=== PATIENT | female | born 1970 | race Caucasian/White ===

== ENCOUNTER 2020-03-31 16:53 | Outpatient (CLI) | payer BC, SELFPAY ==
--- NOTE | ~2020-03-31 | MM_ITS ---
EXAMINATION: MM screening carol BI w bri HISTORY: Screening mammogram TECHNIQUE: Craniocaudal and mediolateral oblique 3-D tomosynthesis images were obtained and synthetic 2-D images were generated. CAD analysis was submitted and interpreted. COMPARISON: 03/04/2017, 01/11/2016, 3534 2014 bilateral digital screening mammogram examinations BREAST PARENCHYMAL COMPOSITION: There are scattered areas of fibroglandular density. FINDINGS: There is no evidence of suspicious mass, calcification, or architectural distortion to sugg est malignancy in either breast. There has been no suspicious interval change. IMPRESSION: 1. No mammographic evidence of malignancy. 2. Recommend routine screening mammography in one year. BI-RADS Category 1: Negative Reviewed, dictated and finalized at location A. FICATION OPERATOR
== END 2020-03-31 16:54 | disposition home or self-care (01) ==
LOC: ANHIMG 16:59
PROVIDERS: PCP Nurse Practitioner Family; Visit Provider Physician Assistant
DX: Z12.31 Encounter for screening mammogram for malignant neoplasm of breast (principal)
CPT/HCPCS: 77063; 77067

== ENCOUNTER 2020-06-16 09:09 | Emergency (ER) | payer BC, SELFPAY ==
--- NOTE | ~2020-06-16 | XR_ITS ---
EXAMINATION: XR ankle RT min 3V DATE: 06/16/2020 09:39 INDICATION: Right ankle injury and pain. TECHNIQUE: 4 views of right ankle were obtained. COMPARISON: None. FINDINGS: Bone alignment is normal. No fracture. There is mild midfoot osteoarthritis. There are enth esophytes at the posterior and plantar aspects of calcaneal tuberosity. Ankle soft tissue swelling is noted. IMPRESSION: 1. No fracture. Reviewed, dictated and finalized at location A. IMPRESSION: 1. No fracture.
--- NOTE | 2020-06-16 09:15 | ED.GENADULT ---
HPI - General Adult General Chief complaint: Extremity Injury, Lower Stated complaint: INJURED R ANKLE Time Seen by Provider: 06/16/20 09:17 Source: patient and RN notes reviewed Mode of arrival: ambulatory Limitations: no limitations History of Present Illness HPI narrative: 49-year-old female presents with complains of tenderness and swelling to the right ankle for the past 10 hours. Lynn reports walking down back steps barefoot, slipped on wet grass, twisting foot causing injury to RT ankle. Aleve, elevation, padmini wrap, and ice without relief. No radiating pain. No numbness or tingling or loss of mobility. Denies inability to bear weight. Exacerbation factor consist of movement and applying pressure. No relieving factors. Denies discoloration. Denies altered sensation, back pain, neck pain, and suspected foreign body. Denies fever. The patient reports she have not been diagnosed with COVID-19. The patient reports she is not waiting for the results of a COVID-19 lab test. The patient reports she do not have chills, weakness, or fatigue. The patient reports she do not have a new or worsening cough or shortness of breath. Denies chest pain. The patient reports she do not have any rhinorrhea, congestion, sore throat, loss of taste or smell, nausea, vomiting, abdominal pain, and diarrhea. Tolerating po intake well. Denies recent traveling. Denies concerns for COVID-19 or exposures been home with limited outdoor exposure except for essential household needs, work, and return home. At this time, patient is not suspected of having COVID-19. Some parts of this dictation were generated by voice recognition software and may contain typographical and/or grammatical inaccuracies. Related Data Home Medications Medication Instructions Recorded Confirmed No Home Medications 06/16/20 06/16/20 Allergies Allergy/AdvReac Type Severity Reaction Status Date / Time No Known Allergies Allergy Verified 06/16/20 09:19 Review of Systems Review of Systems: Narrative: CONSTITUTIONAL: Denies fever, chills, sweats. EYES: Denies visual changes, redness, discharge. ENT: Denies rhinorrhea, congestion, sore throat, otalgia. CARDIOVASCULAR: Denies chest pain, palpitations, edema. RESPIRATORY: Denies dyspnea, wheezing, cough GASTROINTESTINAL: Denies abdominal pain, nausea, vomiting, diarrhea. SKIN: Denies rash or itching. MUSCULOSKELETAL: Denies acute back pain or myalgia. Complains of RT ankle swelling and tenderness. NEUROLOGIC: Denies numbness or focal weakness. PSYCHIATRIC: Denies anxiety or depression. All other systems reviewed & are unremarkable except as noted in HPI and below. PENDING SALE TO [facility] Past Medical History Medical History (Updated 06/17/20 @ 00:01 by Sandra Teixeira) Post-menopausal Surgical History Surgical History (Updated 06/16/20 @ 09:58 by AIDEE Andrade) No significant past surgical history Family History Family History (Updated 06/16/20 @ 09:59 by AIDEE Andrade) Father , Related to emphysema Smoker Mother , At age 80 Lymphoma Social History Social History (Updated 06/16/20 @ 09:59 by AIDEE Andrade) Smoking status: Never smoker Tobacco type: cigarettes Second hand tobacco smoke exposure: No Alcohol intake: current Substance use: never Living arrangements: with family Occupation/Education: occupation Gender identity (if verbalized by the patient): Female Sexual Orientation (if Verbalized by the Patient): Straight or Heterosexual Comments At time of signature, agree with nurse past medical, surgical, social, and family history. There is no relevant family history pertinent to the presenting complaint. Exam Narrative: Exam Narrative: GENERAL: This is a well-nourished, well-developed patient, in no apparent distress. Talks in full sentences without deficits and ambulates with RT antalgic gait without dyspnea. HEAD: Normocephalic
[2020-06-16 09:21] VITALS: BP 147/94; PULSE 70; RESP 16; TEMP 36.6; O2SAT 100
== END 2020-06-16 10:05 | disposition home or self-care (01) ==
PROVIDERS: Emergency Provider Nurse Practitioner Family; PCP Nurse Practitioner Family
DX: S93.401A Sprain of unspecified ligament of right ankle, initial encounter (principal); X50.9XXA Other and unspecified overexertion or strenuous movements or postures, initial encounter
CPT/HCPCS: 73610; 99213; G0463

== ENCOUNTER 2021-04-18 11:03 | Outpatient (CLI) | payer BC, SELFPAY ==
--- NOTE | 2021-04-18 | ECG_ITS ---
Measurements Intervals [place] Rate: 61 P: 36 VA: 147 QRS: -16 QRSD: 89 T: 14 QT: 405 QTc: 411 Interpretive Statements SINUS RHYTHM NO PREVIOUS ECG AVAILABLE FOR COMPARISON Electronically Signed On 04-18-2021 12:29:03 GLASSWARE DEFECT REPAIRER by Miles Willams M.D.
== END 2021-04-18 11:04 | disposition home or self-care (01) ==
LOC: ANHCARD 11:06
PROVIDERS: PCP Nurse Practitioner Family; Visit Provider Obstetrics & Gynecology
DX: E66.9 Obesity, unspecified (principal)
CPT/HCPCS: 93005

== ENCOUNTER 2021-04-27 17:12 | Outpatient (CLI) | payer BC, SELFPAY ==
--- NOTE | ~2021-04-27 | MM_ITS ---
EXAMINATION: MM screening carol BI w bri HISTORY: Screening TECHNIQUE: Craniocaudal and mediolateral oblique 3-D tomosynthesis images were obtained and synthetic 2-D images were generated. CAD analysis was submitted and interpreted. COMPARISON: Comparison to multiple prior studies sequentially, with oldest reviewed study dated 04/09. BREAST PARENCHYMAL COMPOSITION: There are scattered areas of fibroglandular density. FINDINGS: There is no evidence of suspicious mass, calcification, or architectural distortion to sugg est malignancy in either breast. There has been no suspicious interval change. IMPRESSION: 1. No mammographic evidence of malignancy. 2. Recommend routine screening mammography in one year. BI-RADS Category 1: Negative Reviewed, dictated and finalized at location A. ERIZER
== END 2021-04-27 17:13 | disposition home or self-care (01) ==
PROVIDERS: PCP Nurse Practitioner Family; Visit Provider Nurse Practitioner Family
DX: Z12.31 Encounter for screening mammogram for malignant neoplasm of breast (principal)
CPT/HCPCS: 77063; 77067

== ENCOUNTER 2021-06-28 08:46 | Emergency (ER) | payer BC, SELFPAY ==
--- NOTE | ~2021-06-28 | CT_ITS ---
EXAMINATION: CT abdomen pelvis w con DATE: 06/28/2021 09:26 INDICATION: Right lower quadrant abdominal pain starting 2 days ago TECHNIQUE: Computed tomography (CT) of the abdomen and pelvis was performed with 100 CC Omnipaque 300 intravenous contrast. Automated exposure control and iterative reconstruction technique were employe d. Exam dose: 510.17 mGy-cm total exam DLP. COMPARISON: None. FINDINGS: The lung bases are clear of infiltrate or consolidation. Normal heart size. No pericardial or pleural effusion. The liver, gallbladder, bile ducts, spleen, pancreas, pancreatic duct, and adrenal glands and kidneys are unremarkable. Normal caliber of the abdominal aorta. No intraperitoneal or retroperitoneal or pelvic mass lesion or adenopathy or ascites. The uterus, adnexa and urinary bladder are unremarkable, other than an approximately 9 mm right ovari an cyst. Normal appendix. There is very prominent pericolic fat stranding in the region of the proximal sigmoid colon. There ar e scattered colonic diverticula. Findings are suggestive of sigmoid diverticulitis. No abscess cavity or free intraperitoneal air is noted. There is a small amount of free fluid in the cul-de-sac. Included skeletal structures are unremarkable; no suspicious osteolytic or osteoblastic lesions. IMPRESSION: Sigmoid diverticulitis Diverticulosis in the sigmoid colon 9 mm right ovarian cyst Normal appendix Reviewed, dictated and finalized at Location A. Reviewed, dictated and finalized at location B.
[2021-06-28 08:49] VITALS: BP 143/96; PULSE 96; RESP 16; TEMP 36.9; O2SAT 98
--- NOTE | 2021-06-28 09:01 | ED.ABDPAIN ---
HPI - Abdominal Pain General Chief Complaint: Abdominal Pain Stated Complaint: abd pain Time Seen by Provider: 06/28/21 08:49 Source: patient Mode of arrival: ambulatory Limitations: no limitations History of Present Illness HPI narrative: 50 y/o female presenting to the ER today for complaints of periumbilical/RLQ abdominal pain that started on Saturday. She says that the pain has been pretty intense and constant since Saturday. She had chills on Saturday evening but did not check temp. Last BM was Saturday and was normal. She has had mild nausea, no vomiting. No chest pain. No shortness of breath. She still has her gallbladder and appendix. She is normally very healthy. She has PMH of hypothyroid and hypertension. She has also been taking topamax and phentermine for weight loss but has not had this medication since the weekend. Related Data Home Medications Medication Instructions Recorded Confirmed levothyroxine 06/28/21 lisinopril 06/28/21 phentermine mg 06/28/21 topiramate 06/28/21 06/28/21 Allergies Allergy/AdvReac Type Severity Reaction Status Date / Time No Known Allergies Allergy Verified 06/28/21 08:52 Review of Systems Constitutional: Constitutional: Reports chills, Denies fatigue, Denies fever(s) and Denies weakness Eyes: Eyes: Reports no additional eye complaints ENT: Denies dysphagia, Denies dizziness, Denies nasal congestion and Denies sore throat Cardiovascular: Cardiovascular: Denies chest pain, Denies rapid heart rate and Denies radiating jaw, neck or arm pain Respiratory: Respiratory: Denies chest congestion, Denies cough, Denies dyspnea and Denies wheezing Gastrointestinal: Gastrointestinal: Reports abdominal pain, Denies constipation, Denies diarrhea, Reports nausea and Denies vomiting Genitourinary: Genitourinary: Denies hematuria, Denies nocturia, Denies dysuria and Denies flank pain Musculoskeletal: Musculoskeletal: Denies back pain and Denies myalgias Integumentary/Breasts: Skin/Breast: Denies rash Neurologic: Denies vertigo, Denies dizziness and Denies syncope Psychiatric: Psychiatric: Denies anxiety and Denies depression Endocrine: Endocrine: Denies fatigue Hematologic/Lymphatic: Hematologic/Lymphatic: Reports no additional hematologic/lymphatic complaints Allergic/Immunologic: Allergic/Immunologic: Reports no additional allergic/immunologic complaints [facility] Past Medical History Medical History Hypertension Hypothyroid Obesity Post-menopausal Surgical History Surgical History No significant past surgical history Family History Family History Father , Related to emphysema Smoker Mother , At age 80 Lymphoma Social History Social History Smoking status: Never smoker Tobacco type: cigarettes Second hand tobacco smoke exposure: No Alcohol intake: current Substance use: never Gender identity (if verbalized by the patient): Female Sexual Orientation (if Verbalized by the Patient): Straight or Heterosexual Exam Const: General: healthy appearing, no acute distress and alert Orientation/consciousness: patient oriented x3 HENMT: Head: normal to inspection Eyes: Conjunctivae: conjunctivae normal Neck: Neck: normal visual inspection Chest: Chest palpation & inspection: normal inspection of the chest Resp: Effort & Inspection: normal respiratory effort Auscultation: clear to auscultation bilaterally Cardio: Rate: regular rate Rhythm: regular rhythm GI: GI Palp: Yes Soft to palpation and Yes Tenderness to palpation present (GI) (periumbilical and RLQ) Auscultation: normal bowel sounds : General: Yes no CVA tenderness Skin: General skin exam: normal color Rashes: no rashes Neuro: Genera
[2021-06-28 09:08] LABS: Basophils Absolute Auto 0.1 K/mm3 (0.0-0.1); Basophils Percent Auto 0.5 % (0.2-1.2); Eosinophils Absolute Auto 0.1 K/mm3 (0-0.3); Eosinophils Percent Auto 0.7 % (0-4.4); Hematocrit 41.1 % (37.0-47.0); Hemoglobin 13.7 g/dL (12.0-15.0); Immature Granulocyte Absolute 0.05 K/mm3 (0.00-0.031); Immature Granulocyte Percent A 0.3 % (0-0.5); Lymphocytes Percent Auto 12.9 % (18.3-44.2); Mean Corpuscular HGB Conc 33.3 g/dl (32-36); Mean Corpuscular Hemoglobin 29.5 pg (26-34); Mean Corpuscular Volume 88.4 fl (80-100); Mean Platelet Volume 10.8 fl (7.4-10.4); Monocytes Absolute Auto 1.4 K/mm3 (0.1-0.6); Monocytes Percent Auto 8.7 % (2.6-8.5); Neutrophils Absolute Auto 11.9 K/mm3 (1.3-6.7); Neutrophils Percent Auto 76.9 % (45.5-73.1); Platelet Count Result 269 k/mm3 (150-375); Red Blood Count 4.65 M/mm3 (4.2-5.4); Red Cell Distribution Width 13.1 % (11.5-14.5); White Blood Count 15.5 K/mm3 (4.5-10.0)
[2021-06-28 09:16] LABS: Estimated CRCL calculation 70 ml/min; Estimated Glomerular Filt Rate > 60
[2021-06-28 09:23] LABS: Lactic Acid Reflex 0.7 mmol/L (0.7-2.0)
[2021-06-28 09:28] LABS: Alanine Aminotransferase 15 U/L (6-35); Albumin Level 4.8 g/dL (3.5-5.1); Alkaline Phosphatase 95 U/L (38-126); Anion Gap 11 mmol/L (8-16); Aspartate Amino Transferase 19 U/L (14-36); Blood Urea Nitrogen 9 mg/dL (7-17); Calcium 9.1 mg/dL (8.4-10.2); Carbon Dioxide 23 mmol/L (22-30); Chloride 104 mmol/L (98-107); Estimated CRCL calculation 63 ml/min; Estimated Glomerular Filt Rate > 60; Glucose 108 mg/dL (65-110); Lipase 22 U/L (23-300); Potassium 3.7 mmol/L (3.4-5.0); Sodium 138 mmol/L (137-145)
[2021-06-28 09:58] LABS: Appearance Urine Clear (Clear); Bilirubin Urine 2+ (Negative); Glucose Urine UA Negative (Negative); Ketones Urine 2+ mg/dL (Negative); Leukocyte Esterase Ur Negative LEU/UL (Negative); Nitrate Urine Negative (Negative); Protein Urine 1+ mg/dL (Negative)
[2021-06-28 10:00] LABS: Color Urine Dark Yellow (Yellow)
[2021-06-28 10:01] LABS: Add Urine Microscopic? YES; Blood Urine Trace-Intact (Negative)
[2021-06-28 10:02] LABS: Mucus Urine Heavy /lpf; Squamous Epithelial Cell Urine Rare /hpf (Few)
[2021-06-28] MEDS: SODIUM CHLORIDE 0.9% IV 1,000 ML 999 ML IV CONT (10:02)
[2021-06-28 10:55] VITALS: BP 130/88; PULSE 86; RESP 14; O2SAT 99
== END 2021-06-28 11:23 | disposition home or self-care (01) ==
PROVIDERS: Emergency Medicine; Emergency Provider Nurse Practitioner Family; PCP Nurse Practitioner Family
DX: K57.32 Diverticulitis of large intestine without perforation or abscess without bleeding (principal); I10 Essential (primary) hypertension; E03.9 Hypothyroidism, unspecified; E66.9 Obesity, unspecified; Z68.31 Body mass index [BMI] 31.0-31.9, adult; K57.90 Diverticulosis of intestine, part unspecified, without perforation or abscess without bleeding; N83.201 Unspecified ovarian cyst, right side
CPT/HCPCS: 36415; 74177; 80053; 81001; 83605; 83690; 85025; 96360; 96361; 99284; J7030; Q9967

== ENCOUNTER 2022-01-29 08:00 | Outpatient (NON) | payer BC, SELFPAY | END 2022-01-29 08:01 | disposition home or self-care (01) | LOC: ANHLAB 01-30 14:37 | PROVIDERS: PCP Nurse Practitioner Family; Visit Provider Nurse Practitioner | DX: D22.5 Melanocytic nevi of trunk (principal) | CPT/HCPCS: 88305 ==

== ENCOUNTER 2022-06-25 15:42 | Outpatient (CLI) | payer BC, SELFPAY ==
--- NOTE | ~2022-06-25 | MM_ITS ---
EXAMINATION: MM screening carol BI w bri HISTORY: Screening mammogram, family history of breast cancer in her mother. TECHNIQUE: Craniocaudal and mediolateral oblique 3-D tomosynthesis images were obtained and synthetic 2-D images were generated. CAD analysis was submitted and interpreted. COMPARISON: 04/27/2021, 03/31/2020, 03/04/2017 BREAST PARENCHYMAL COMPOSITION: There are scattered areas of fibroglandular density. FINDINGS: No suspicious mass, calcification, or architectural distortion are identified in either byron ast to suggest malignancy. There has been no suspicious interval change. IMPRESSION: 1. No mammographic evidence of malignancy. 2. Recommend routine screening mammography in one year. BI-RADS Category 1: Negative Reviewed, dictated and finalized at location A.
== END 2022-06-25 15:43 | disposition home or self-care (01) ==
LOC: ANHIMG 15:44
PROVIDERS: PCP Nurse Practitioner Family; Visit Provider Nurse Practitioner Family
DX: Z12.31 Encounter for screening mammogram for malignant neoplasm of breast (principal)
CPT/HCPCS: 77063; 77067

== ENCOUNTER 2023-09-10 15:57 | Outpatient (CLI) | payer BC, SELFPAY ==
--- NOTE | ~2023-09-10 | MM_ITS ---
EXAMINATION: MM screening carol BI w bri HISTORY: Screening TECHNIQUE: Craniocaudal and mediolateral oblique 3-D tomosynthesis images were obtained and synthetic 2-D images were generated. CAD analysis was submitted and interpreted. COMPARISON: Comparison to multiple prior studies sequentially, with oldest reviewed study dated 04/2014. BREAST PARENCHYMAL COMPOSITION: Not dense: There are scattered areas of fibroglandular density. FINDINGS: There is no evidence of suspicious mass, calcification, or architectural distortion to sugg est malignancy in either breast. There has been no suspicious interval change. IMPRESSION: 1. No mammographic evidence of malignancy. 2. Recommend routine screening mammography in one year. BI-RADS Category 1: Negative Reviewed, dictated and finalized at location B.
== END 2023-09-10 15:58 | disposition home or self-care (01) ==
PROVIDERS: PCP Nurse Practitioner Family; Visit Provider Nurse Practitioner
DX: Z12.31 Encounter for screening mammogram for malignant neoplasm of breast (principal)
CPT/HCPCS: 77063; 77067

== ENCOUNTER 2024-05-21 08:50 | Outpatient (CLI) | payer BC, SELFPAY ==
--- OUTSIDE RECORDS SUMMARY | 2024-05-21 09:01 | XMS_ITS | Encounter Summary ---
Author Organization [facility] Address [facility] [place] [address] Care Team Providers Care Corporate Planning Manager Name Role Phone Aruna Ruvalcaba NP Primary Care Provider [phone] Encounter Details Date Type Department Care Team (Late st Contact Info) Description 08/30/2023 [email or web address] Message Enc [facility] Medical Group Family Medicine [facility] [address] [place] [id number] Aruna Ruvalcaba, WINDOWS SERVER SUPPORT TECHNICIAN [address] [place] [address] Injections for weight loss Social History Tobacco Use Types Packs/Day Years Used Date Smoking Tobacco: Never Passive Smoke Exposure: Never Smokeless Tobacco: Never Alcohol Use Standard Drinks/Week Comments Yes 3.3 (1 standard drink = 0.6 oz p ure alcohol) social AUDIT-C Answer Date Recorded Frequency of Alcohol Consumption Never 01/01/2018 Average Number of Drinks Not on file 018 Frequency of Binge Drinking Not on file 12/19 PHQ-2 Answer Date Recorded Patient Health Questionnaire-2 Score 0 08/27/2023 Comments No Sex and Gender Information Value Date Recorded Sex Assigned at Not on file Legal Sex Female 9:19 PM CDT Gender Identity Not on file Sexual Orientation Straight 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
--- OUTSIDE RECORDS SUMMARY | 2024-05-21 09:01 | XMS_ITS | Encounter Summary ---
Author Organization [facility] Address [facility] [place] [address] Care Team Providers Care Art Dealer Name Role Phone Aruna Ruvalcaba NP Primary Care Provider [phone] Encounter Details Date Type Department Care Team (Late st Contact Info) Description 01/06/2024 FrameBlast Message Enc [facility] Medical Group Family Medicine [facility] [address] [facility] [address] [facility] [address] [place], [place] [id number] Aruna Ruvalcaba, LEAD JAVA J2EE DEVELOPER [address] [place] [address] Could I get some abx Social History Tobacco Use Types Packs/Day Years [...] Sexual Orientation Straight 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
--- OUTSIDE RECORDS SUMMARY | 2024-05-21 09:01 | XMS_ITS | Clinical Summary ---
Author Organization [facility] Address [address] [place] [address] Care Team Providers Care Treasury Agent Name Role Phone Aruna Ruvalcaba NP Primary Care Provider [phone] [phone] Allergies No known active allergies Medications naltrexone (DEPADE) 50 MG tabletIndications: Obesity (BMI 30-39.9) Take 0.5 tablets (25 mg total) by mouth daily. 90 tablet 1 4 Active lisinopril (PRINIVIL) 10 MG tabletIndications: Primary hypertension Take 1 tablet (10 mg total) by mouth daily. 90 tablet 2 4 Active levothyroxine (SYNTHROID) 50 MCG tabletIndications: Acquired hypothyroidism Take 1 tablet (50 mcg total) by mouth every morning. 90 tablet 2 4 Active buPROPion XL (WELLBUTRIN XL) 150 MG 24 hr tabletIndications: Obesity (BMI 30-39.9) Take 1 tablet (150 mg total) by mouth daily. 90 tablet 1 5 Active buPROPion XL (WELLBUTRIN XL) 150 MG 24 hr tabletIndications: Obesity (BMI 30-39.9) TAKE 1 TABLET BY MOUTH EVERY DAY 90 tablet 1 5 05/16/19 25 Discontin ued(Reord er) Active Problems Problem Noted Date Diagnosed Date Obesity (BMI 30-39.9) 08/27/2023 Overview (08/27/2023): Struggles with weight loss. Had been on phentermine many years ago and lost 40 pounds. Is not exercising right now and eating as well. Assessment & Plan (08/27/2023 9:32 AM CDT): Diet and lifestyle changes discussed to assist with weight loss. Vitamin D deficiency 11/28/2017 Overview (08/27/2023): Not on replacement at this time. Assessment & Plan (08/27/2023 10:03 AM CDT): Will recheck level and provide dosing that is appropriate. Hypothyroid 11/28/2017 Overview (08/27/2023): On levothyroxine 50 mcg daily. Essential hypertension 11/20/2016 Overview (08/27/2023): Currently taking lisinopril 10 mg daily. Tolerates well. BP is well-controlled with use. Assessment & Plan (08/27/2023 9:32 AM CDT): Chronic condition. BP well-controlled with lisinopril 10 mg daily. No med changes needed at this time. Menopause present 11/15/2016 Overview (08/27/2023): At 49 Resolved Problems Problem Noted Date Diagnosed Date Resolved Date Encounter for lipid screenin g for cardiovascular disease 02/02/2019 10/30/2019 Need for immunization against influenza 02/02/2019 10/30/2019 Cutaneous skin tags 01/05/2018 08/27/19 24 Class 1 obesity due to exces s calories with serious comorbidity and body mass index (BMI) of 31.0 to 31.9 in adult 11/20/2016 08/27/2023 Abnormal weight gain 11/15/2016 024 Encounters Date Type Department Care Team Description 05/15/2024 Orders Only [facility] Family Medicine - [place] [address] [place] [address] Humera Bourgeois MA 04/23/2024 Orders Only [facility] Family Medicine - [place] [address] [place] [address] Aruna Ruvalcaba NP 03/18/2024 MyChart Message Enc [facility] Family Medicine - [place] [address] [place] [address] Aruna Ruvalcaba NP Cologuard from Last 3 Months Immunizations Name Administration Dates Next Due Fluzone 6 Months+ Quad (0.5 mL Prefilled Syringe) 01/30/2019 Hepatitis B (Generic: Adult) 10/29/2006,07/20/19 07,06/12/2006 MMR 01/28/2013 Shingrix 04/12/2023 Tdap (Generic) 04/12/2023,06/12/2006 Zoster (Zostavax) 29489 Unt/0.65Ml 03/31/2020 Family History Medical History Relation Comments Heart Disease Father Stroke Father Cancer Mother breast cancer an d lymphoma Diabetes Mother Hypertension Mother Relation Status Comments Father Mother Social History Tobacco Use Types Packs/Day Years Used Date Smoking Tobacco: Never Passive Smoke Exposure: Never Smokeless Tobacco: Never Tobacco Cessation:Counseling Given: No Alcohol Use Standard Drinks/Week Comments Yes 3.3 [...] Sexual Orientation Straight 01/01/2018 8: 41 AM FULL STACK PHP DEVELOPER Last Filed Vital Signs Vital Sign Reading Time Taken Comments Blood Pressure 130/86 10/03/2023 3:52 PM CDT Pulse 76 10/03/2023 3:52 PM CDT Temperature 37.1 C (98.7 F) 10/03/2023 3:52 PM CDT Respiratory Rate 18 10/03/2023 3:52 PM CDT Oxygen Saturation 98% 10/03/2023 3:52 PM CDT Inhaled Oxygen Concentration - - Weight 84.8 kg (187 lb) 10/03/2023 3:52 PM CDT Height 160 cm (5' 3 ) 10/03/2023 3:52 PM CDT Body Mass Index 33.13 10/03/2023 3:52 PM CDT Plan of Treatment Health Maintenance Due Date Last Done Comments Cervical Cancer Screening Pap Smear (Age 30 to 64) Every 3 Years 03/24/2023 03/24/2020 Zoster Vaccines (3 of 3) 06/07/2023 04/12/2023, 03/21 COVID-19 Vaccine ( season) 2023 12/31/2020, 12/10/2020 PHQ-2 (Physician [place]) 02/19/2024 08/27/2023 Annual Physical 08/26/2024 08/27/2023, 05/2020, 03/24/2020 Cervical Cancer Screening Pap with HPV Testing (Age 30 to 64) Every 5 Years 03/25/2025 Cervical Cancer Screening with HPV 03/25/2025 Mammogram Screening 09/09/2025 09/10/2023, 09/10/2023, 06/25/2022, Additional history exists Colorectal Cancer Screening FIT-DNA (3 Years) 04/14/2027 04/14/2024, 02/06/2021 DTaP, Tdap and Td Vaccines (3 - Td or Tdap) 04/12/2033 04/12/2023, 06/12/2006 Hepatitis B Vaccines Completed 10/29/2006, 07/19/2006, 06/12/2006 Hepatitis C Completed 08/27/2023 Meningococcal B Vaccine Aged Out No l onger eligible based on patient's age to complete this topic Meningococcal Vaccine Aged Out No juanita beto eligible based on patient's age to complete this topic Pneumococcal Vaccine: Pediatrics (0 to 5 Years) and At-Risk Patients (6 to 64 Years) Aged Out No longer eligible based on patient's age to complete this topic RSV Immunizations Under 20 Months Aged Out No longer eligible based on patient's age to complete this topic Procedures Procedure Name Priority Date/Time Associated Diagnosis Comments COLOGUARD (EXACT SCIENCE) Routine 04/14/2024 10:00 AM FULL STACK PHP DEVELOPER Screen for colon cancer MAMMOGRAM GENERIC (SCAN ORDER) 09/10/2023 HEPATITIS C ANTIBODY Routine 08/27/2023 10:19 AM CDT Need for hepatitis C screening test OUTSIDE CYTOPATH CERV/VAG INTERPRET (PAP) (SCAN ORDER) 03/24/2020 from Last 3 Months or Most Recently Relevant to Health Maintenance Results * (ABNORMAL) COLOGUARD (Blip) (04/14/2024 10:00 AM FULL STACK PHP DEVELOPER) COLOGUARD RESULT Positive( A) Negative [employer] (CLIA #:[id number]) Comment: POSITIVE TEST RESULT. A positive Cologuard result should be followed with a colonoscopy or visual examination of the colon. The normal value (reference range) for this assay is negative. TEST DESCRIPTION: Composite algorithmic analysis of stool DNA-biomarkers with hemoglobin immunoassay. Quantitative values of individual biomarkers are not reportable and are not associated with individual biomarker result reference ranges. Cologuard is intended for colorectal cancer screening of adults of either sex, 45 years or older, who are at average-risk for colorectal cancer (CRC). Cologuard has been approved for use by the U.S. FDA. The performance of Cologuard was established in a cross sectional study of average-risk adults aged 50-84. Cologuard performance in patients ages 45 to 49 years was estimated by sub-group analysis of near-age groups. Colonoscopies performed for a positive result may find as the most clinically significant lesion: colorectal cancer [4.0%], advanced adenoma (including sessile serrated polyps greater than or equal to 1cm diameter) [20%] or non- advanced adenoma [31%]; or no colorectal neoplasia [45%]. These estimates are derived from a prospective cross-sectional screening study of 10,000 individuals at average risk for colorectal cancer who were screened with both Cologuard and colonoscopy. (Reece Galindo et al, N Engl J Med 2014;370(14):1104-8342.) Cologuard may produce a false negative or false positive result (no colorectal cancer or precancerous polyp present at colonoscopy follow up). A negative Cologuard test result does not guarantee the absence of CRC or advanced adenoma (pre-cancer). The current Cologuard screening interval is every 3 years. ([place] [employer] and U.S. [facility]-Society Task Force). Cologuard performance data in a 10,000 patient pivotal study using colonoscopy as the reference method can be accessed at the following location: www.Biome[employer].com/results. Additional description of the Cologuard test process, warnings and precautions can be found at www.cologuard.com. STOOL STOOL SPECIMEN / Unknown 04/14/2024 10:00 AM FULL STACK PHP DEVELOPER 04/15/2024 10:03 AM FULL STACK PHP DEVELOPER Aruna Ruvalcaba HOD CARRIER BODY FLUIDS AND STOOLS OR DERABLES Final Result Performing Organization Address [facility] Co de Phone Number [employer] ([address]) [address] [place] [address], [employer] (CLIA #:[id number]) [address] [place] [address] * MAMMOGRAM GENERIC (SCAN ORDER) (09/10/2023) Anatomical Region Laterality Modality Other 09/10/2023 [facility] Scanned SCANNING Final Resu lt * HEPATITIS C ANTIBODY (08/27/2023 10:19 AM CDT) HEPATITIS C AB NON-REACTI VE NON-REACT LUZ ELENA 08/27/2023 10:15 PM CDT [facility] Comment: ANTIBODIES TO HCV NOT DETECTED. DOES NOT EXCLUDE THE POSSIBILITY OF EXPOSURE TO HCV. 08/27/2023 10:1 9 AM CDT Aruna Ruvalcaba NP LABORATORY Final Res ult Performing Organization Address [facility] Co de Phone Number [facility] [address] [place] [address], [phone] * OUTSIDE CYTOPATH CERV/VAG INTERPRET (PAP) (03/24/2020) 03/24/2020 Narrative 03/24/2020 Ordered by an unspecified provider. us Documents Scanned SCANNING Final Result from Last 3 Months or Most Recently Relevant to Health Maintenance Insurance [facility] [[email or web address]] Care Teams Treasury Agent Relationship Specialty Start Date End Date Aruna Ruvalcaba NP [address] [place] [address] PCP - General NURSE PRACTITIONER 08/27/23
--- OUTSIDE RECORDS SUMMARY | 2024-05-21 09:01 | XMS_ITS | Encounter Summary ---
Author Organization [facility] Address [facility] [place] [address] Care Team Providers Care Soda Dispenser Name Role Phone Aruna Ruvalcaba NP Primary Care Provider [phone] Encounter Details Date Type Department Care Team (Late st Contact Info) Description 09/11/2023 Innovist Message Enc [facility] Family Medicine - [place] [address] [facility] [address] [place] [id number] Aruna Ruvalcaba, PAINTER ORDNANCE [address] [place] [address] mammogram Social History Tobacco Use Types Packs/Day Years [...] Sexual Orientation Straight 01/01/2018 8: 41 AM BANDAGE MAKER documented as of this encounter Plan of Treatment Not on file documented as of this encounter Visit Diagnoses Not on filedocumented in this encounter Additional Health Concerns Assessment Noted Time PHQ-9 Depression Total Score: 0 07/14/19 23 8:12 AM CDT documented as of this encounter Care Teams Soda Dispenser Relationship Specialty Start Date End Date Aruna Ruvalcaba NP [address] [place] [address] PCP - General NURSE PRACTITIONER 08/27/23 documented as of this encounter
--- OUTSIDE RECORDS SUMMARY | 2024-05-21 09:01 | XMS_ITS | Clinical Summary ---
Author Organization [facility] Address [address] [place] [address] Phone Care Team Providers Care Wastewater Engineer Name Role Phone Omari Magana MD Primary Care Provider [phone] Social History Tobacco Use Types Packs/Day Years Used Date Smoking Tobacco: Never Assessed Comments Unknown Sex and Gender Information Value Date Recorded Sex Assigned at Not on file Legal Sex Female 8:46 PM CDT Gender Identity Not on file Sexual Orientation Not on file Plan of Treatment Health Maintenance Due Date Last Done Comments Hepatitis C Virus (HCV) Screening 1969 TdaP Immunization 1969 Hepatitis B Immunization (1 of 3 - 19+ 3-dose series) 1988 Pap Smear 1990 Cervical Cancer Screening (CCS) 10/02/1999 HPV/Cotest 10/02/1999 Colonoscopy 2014 Colorectal Cancer Screening 2014 Cologuard 10/02/2019 Immunochemical Fecal Occult Blood 10/02/2019 Mammogram 10/02/2019 Pneumococcal Immunization (5 0+ years) (1 of 1 - PCV) 10/02/2019 Zoster Immunization (1 of 2) 10/02/2019 Influenza Immunization (#1) 2023 SARS-COV-2 Immunization ( - season) 2023 Respiratory Syncytial Virus (RSV) Immunization (Adult) (1 - 1-dose 75+ series) 2044 Meningococcal Immunization (ACWY) Aged Out No longer eligible based on patient's age to complete this topic Pneumococcal Immunization Combined Aged Out No longer eligible based on patient's age to complete this topic Rotavirus Immunization Aged Out No lo nger eligible based on patient's age to complete this topic Insurance [facility] Care Teams Wastewater Engineer Relationship Specialty Start Date End Date Omari Magana MD [address] [place] [address] PCP - General Family Medicine 06/03/15
--- OUTSIDE RECORDS SUMMARY | 2024-05-21 09:01 | XMS_ITS | Encounter Summary ---
Author Organization [facility] Address [facility] [place] [address] Care Team Providers Care Sweater Designer Name Role Phone Aruna Ruvalcaba NP Primary Care Provider [phone] Encounter Details Date Type Department Care Team (Late st Contact Info) Description 01/06/2024 Magicblox Message Enc [facility] Family & Internal Medicine [facility] [address] [place] [address] Annelise Torres FNP [address] [place], [place] [phone] Abx? Social History Tobacco Use Types Packs/Day Years [...] Sexual Orientation Straight 01/01/2018 8: 41 AM REGULATORY CONSULTANT documented as of this encounter Progress Notes * Aruna Ruvalcaba NP - 01/06/2024 11:53 AM CST Pt reached out to be on [employer]. Review message and my response and then looks like she messaged you. LATORY CONSULTANT documented in this encounter Plan of Treatment Not on file documented as of this encounter Visit Diagnoses Diagnosis Acute non-recurrent frontal sinusitis- Primary documented in this encounter Additional Health Concerns Assessment Noted Time PHQ-9 Depression Total Score: 0 07/14/19 23 8:12 AM CDT documented as of this encounter Care Teams Sweater Designer Relationship Specialty Start Date End Date Aruna Ruvalcaba NP [address] [place] [address] PCP - General NURSE PRACTITIONER 08/27/23 documented as of this encounter
[2024-05-21 19:15] LABS: Hematocrit 44.9 % (37.0-47.0); Hemoglobin 14.1 g/dL (12.0-15.0); Mean Corpuscular HGB Conc 31.4 g/dl (32-36); Mean Corpuscular Hemoglobin 29.4 pg (26-34); Mean Corpuscular Volume 93.7 fl (80-100); Mean Platelet Volume 11.4 fl (7.4-10.4); Platelet Count Result 288 k/mm3 (150-375); Red Blood Count 4.79 M/mm3 (4.2-5.4); Red Cell Distribution Width 13.6 % (11.5-14.5); White Blood Count 4.9 K/mm3 (4.5-10.0)
[2024-05-21 19:30] LABS: Alanine Aminotransferase 19 U/L (6-35); Albumin Level 4.8 g/dL (3.5-5.1); Alkaline Phosphatase 66 U/L (38-126); Anion Gap 9 mmol/L (4-12); Aspartate Amino Transferase 35 U/L (14-36); Bilirubin,Total 0.5 mg/dL (0.2-1.3); Blood Urea Nitrogen 18 mg/dL (7-17); Calcium 9.4 mg/dL (8.4-10.2); Carbon Dioxide 28 mmol/L (22-30); Chloride 104 mmol/L (98-107); Cholesterol 187 mg/dL (0-200); Estimated Glomerular Filt Rate > 60; Glucose 87 mg/dL (65-110); HDL Direct 50 mg/dL; Potassium 4.3 mmol/L (3.4-5.0); Sodium 141 mmol/L (137-145); Triglycerides 103 mg/dL (<150)
[2024-05-21 19:49] LABS: LDL Cholesterol Direct 93 mg/dL
== END 2024-05-21 08:51 | disposition home or self-care (01) ==
PROVIDERS: PCP Nurse Practitioner Adult Health; Visit Provider Nurse Practitioner Adult Health
DX: Z13.9 Encounter for screening, unspecified (principal); I10 Essential (primary) hypertension
CPT/HCPCS: 36415; 80053; 80061; 84443; 85027

== ENCOUNTER 2024-06-09 02:11 | Day surgery (SDC) | payer BC, SELFPAY ==
[2024-05-29 13:03] VITALS: BMI 28.3
--- OUTSIDE RECORDS SUMMARY | 2024-06-09 02:14 | XMS_ITS | Clinical Summary ---
Author Organization [facility] Address [address] [place] [address] Care Team Providers Care Machine Design Checker Name Role Phone Aruna Ruvalcaba NP Primary Care Provider [phone] Allergies No known active allergies Medications naltrexone [...] Department Care Team Description 05/15/2024 Orders Only [facility] Family Medicine - [place] [address] [place] [address] Humera Bourgeois MA 04/23/2024 Orders Only [facility] Family Medicine - [place] [address] [place] [address] Aruna Ruvalcaba NP 03/18/2024 MyChart Message Enc [facility] Family Medicine - [place] [address] [place] [address] Aruna Ruvalcaba NP Cologuard from Last 3 Months Immunizations Immunization Administration Dates Next Due Fluzone 6 Months+ Quad (0.5 mL Prefilled Syringe) 01/30/2019 Hepatitis B (Generic: Adult) 10/29/2006,07/20/19 07,06/12/2006 MMR 01/28/2013 Shingrix 04/12/2023 Tdap (Generic) 04/12/2023,06/12/2006 Zoster (Zostavax) 80440 Unt/0.65Ml 03/31/2020 Family History Medical History Relation [...] Sexual Orientation Straight 01/01/2018 8: 41 AM BASKET FILLER Last Filed Vital Signs Vital Sign Reading [...] Health Maintenance Due Date Last Done Comments Pneumococcal Vaccine: 50+ Years (1 of 1 - PCV) 10/02/2019 Cervical Cancer Screening Pap Smear (Age 30 to 64) Every 3 Years 03/24/2023 03/24/2020 Zoster Vaccines (3 of 3) 06/07/2023 04/12/2023, 03/21 COVID-19 Vaccine (3 - season) 2023 12/31/2020, 12/10/2020 PHQ-2 (Physician Kenaitze) 02/19/2024 08/27/2023 Annual Physical 08/26/2024 08/27/2023, 05/2020, [...] COLOGUARD (EXACT SCIENCE) Routine 04/14/2024 10:00 AM BASKET FILLER Screen for colon cancer MAMMOGRAM GENERIC (SCAN ORDER) 09/10/2023 HEPATITIS C ANTIBODY Routine 08/27/2023 10:19 AM CDT Need for hepatitis C screening test OUTSIDE CYTOPATH CERV/VAG INTERPRET (PAP) (SCAN ORDER) 03/24/2020 from Last 3 Months or Most Recently Relevant to Health Maintenance Results * (ABNORMAL) COLOGUARD ([employer] SCIENCE) (04/14/2024 10:00 AM BASKET FILLER) COLOGUARD RESULT Positive( A) Negative [employer] (CLIA #:[id number]) Comment: POSITIVE TEST RESULT. A positive Cologuard [...] screened with both Cologuard and colonoscopy. (Reece Uribe al, N Engl J Med 2014;370(14):1923-9362.) Cologuard may produce a false negative or false positive result (no colorectal cancer or precancerous polyp present at colonoscopy follow up). A negative Cologuard test result does not guarantee the absence of CRC or advanced adenoma (pre-cancer). The current Cologuard screening interval is every 3 years. ([place] Cancer Society and U.S. Multi-Society Task Force). Cologuard performance data in a 10,000 patient pivotal study using colonoscopy as the reference method can be accessed at the following location: www.[employer]Cadre [employer]iess.com/results. Additional description of the Cologuard test process, warnings and precautions can be found at www.cologuard.com. STOOL STOOL SPECIMEN / Unknown 04/14/2024 10:00 AM BASKET FILLER 04/15/2024 10:03 AM BASKET FILLER Aruna Ruvalcaba STENOCAPTIONER BODY FLUIDS AND STOOLS OR DERABLES Final Result Performing Organization Address [facility]/ZIP Co de Phone Number [employer] ([facility] [address] [facility]) [address] [place] [place] [address], [facility] (CLIA #:[id number]) [address] [place] [address] * MAMMOGRAM GENERIC (SCAN ORDER) (09/10/2023) Anatomical Region Laterality Modality Other 09/10/2023 [facility] Scanned SCANNING Final Resu lt * HEPATITIS C ANTIBODY (08/27/2023 10:19 AM CDT) HEPATITIS C AB NON-REACTI VE NON-REACT LUZ ELENA 08/27/2023 10:15 PM CDT [facility] Comment: ANTIBODIES TO HCV NOT DETECTED. DOES NOT EXCLUDE THE POSSIBILITY OF EXPOSURE TO HCV. 08/27/2023 10:1 9 AM CDT Aruna Ruvalcaba STENOCAPTIONER LABORATORY Final Res ult Performing Organization Address City/[facility]/ZIP Co de Phone Number [facility] [address] [place] [address], [phone] * OUTSIDE CYTOPATH CERV/VAG INTERPRET (PAP) (03/24/2020) 03/24/2020 Narrative 03/24/2020 Ordered by an unspecified provider. us Documents Scanned SCANNING Final Result from Last 3 Months or Most Recently Relevant to Health Maintenance Insurance [facility] Care Teams Machine Design Checker Relationship Specialty Start Date End Date Aruna Ruvalcaba NP [address] [place] [address] PCP - General NURSE PRACTITIONER 08/27/23
--- OUTSIDE RECORDS SUMMARY | 2024-06-09 02:14 | XMS_ITS | Encounter Summary ---
Author Organization [facility] Address [facility] [place] [address] Care Team Providers Care Microsoft Net Developer Name Role Phone Aruna Ruvalcaba NP Primary Care Provider [phone] Encounter Details Date Type Department Care Team (Late st Contact Info) Description 09/11/2023 MetroWorkst Message Enc [facility] Family Medicine - [place] [address] [facility] [address] [place] [id number] Aruna Ruvalcaba, VI [address] [place] [address] mammogram Social History Tobacco Use Types Packs/Day [...] Sexual Orientation Straight 01/01/2018 8: 41 AM AUTOMATIC DRY STARCH OPERATOR documented as of this encounter Plan of Treatment Not on file documented as of this encounter Visit Diagnoses Not on filedocumented in this encounter Additional Health Concerns Assessment Noted Time PHQ-9 Depression Total Score: 0 07/14/19 23 8:12 AM CDT documented as of this encounter Care Teams Microsoft Net Developer Relationship Specialty Start Date End Date Aruna Ruvalcaba NP [address] [place] [address] PCP - General NURSE PRACTITIONER 08/27/23 documented as of this encounter
--- OUTSIDE RECORDS SUMMARY | 2024-06-09 02:14 | XMS_ITS | Encounter Summary ---
Author Organization [facility] Address [facility] [place] [address] Care Team Providers Care Senior Project Manager Engineering Name Role Phone Aruna Ruvalcaba NP Primary Care Provider [phone] Encounter Details Date Type Department Care Team (Late st Contact Info) Description 01/06/2024 Bright Pattern Message Enc [facility] Family Medicine [facility] [address] [facility] [address] [place], [place] [id number] Aruna Ruvalcaba, CHIEF SCIENTIFIC OFFICER [address] [place] [address] Could I get some abx Social History [...] Sexual Orientation Straight 01/01/2018 8: 41 AM RECORD KEEPER documented as of this encounter Plan of Treatment Not on file documented as of this encounter Visit Diagnoses Not on filedocumented in this encounter Additional Health Concerns Assessment Noted Time PHQ-9 Depression Total Score: 0 07/14/19 23 8:12 AM CDT documented as of this encounter Care Teams Senior Project Manager Engineering Relationship Specialty Start Date End Date Aruna Ruvalcaba NP [address] [place] [address] PCP - General NURSE PRACTITIONER 08/27/23 documented as of this encounter
--- OUTSIDE RECORDS SUMMARY | 2024-06-09 02:14 | XMS_ITS | Data Portability ---
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 Plan of Treatment Reminders Order Date Submit Date Provider Last Modified By Organization Details Last Modified Time Details Appointments None recorded. Lab None recorded. Referral None recorded. Procedures None recorded. Surgeries None recorded. Imaging None recorded. Medication Orders phentermine 30 mg capsule 2021 ASHLIE [facility], [facility] [address], [place], [id number], 11:49:55 topiramate 50 mg tablet 2021 [facility]SHL[facility], [facility] [address] [place], [place], [id number], 11:49:50 phentermine 15 mg capsule 2021 ASHL[facility], [facility] [address] [place], [place], [id number], 11:32:10 phentermine 15 mg capsule 2021 [facility]SHL[facility], [address] [place], [place], [id number], 18:11:09 topiramate 25 mg tablet 2021 022 [email or web address] [facility], [address], [place], [id number], 22:25:42 phentermine 15 mg capsule 2021 022 ASHLIE [facility], [address], [place], [id number], 10:05:02 topiramate 25 mg tablet 2021 022 [email or web address] [facility], [address], [place], [id number], 13:04:00 Patient TargetsNo targets recorded. Patient InstructionsNo instructions recorded. Reason for Referral None Reported. Results Created Date Observation Date Name Description Value Unit Range Abnormal Flag Note LastModifiedBy Organization Detail LastModifiedTime 04/21/19 22 04/20/2021 CMP WITH BUN/C REAT RATIO sodium 140 mmol/ L 133-14 6 Not Available [facility] (Lab) [address] [place], [address], 04/21/2021 03:31:46 04/21/19 22 04/20/2021 CMP WITH BUN/C REAT RATIO potassium 3.6 mmol/ L 3.5-5. 1 Not Available [facility] (Lab) [address] [place], [address], 04/21/2021 03:31:46 04/21/19 22 04/20/2021 CMP WITH BUN/C REAT RATIO chloride 103 mmol/ L 98-107 Not Available [facility] (Lab) [address] [place], [address], 04/21/2021 03:31:46 04/21/19 22 04/20/2021 CMP WITH BUN/C REAT RATIO carbon dioxide 26 mmol/ L 21-31 Not Available [facility] (Lab) [address] [place], [address], 04/21/2021 03:31:46 04/21/19 22 04/20/2021 CMP WITH BUN/C REAT RATIO anion gap 11 mmol/ L 4-13 Not Available [facility] (Lab) [address], [place], [address], 04/21/2021 03:31:46 04/21/19 22 04/20/2021 CMP WITH BUN/C REAT RATIO blood urea nitrogen 16 mg/dL 7-25 Not Available [facility] (Lab) [address], [place], [address], 04/21/2021 03:31:46 04/21/19 22 04/20/2021 CMP WITH BUN/C REAT RATIO creatinine 0.86 mg/dL 0.60-1 .30 Not Available [facility] (Lab) [address], [place], [address], 04/21/2021 03:31:46 04/21/19 22 04/20/2021 CMP WITH BUN/C REAT RATIO egfrcr (CKD-epi 2020) 82 mL/mi n/1.7 3_m2 >=60 Not Available [facility] (Lab) [address], [place], [address], 04/21/2021 03:31:46 04/21/19 22 04/20/2021 CMP WITH BUN/C REAT RATIO BUN/creatini ne ratio 18.6 . 10.0-2 2.0 Not Available [facility] (Lab) [address], [place], [address], 04/21/2021 03:31:46 04/21/19 22 04/20/2021 CMP WITH BUN/C REAT RATIO calcium 9.8 mg/dL 8.3-10 .5 Not Available [facility] (Lab) [address], [place], [address], 04/21/2021 03:31:46 04/21/19 22 04/20/2021 CMP WITH BUN/C REAT RATIO glucose 85 mg/dL 70-100 Not Available [facility] (Lab) [address] [facility], [place], [address], 04/21/2021 03:31:46 04/21/19 22 04/20/2021 CMP WITH BUN/C REAT RATIO protein, total 7.8 g/dL 6.4-8. 3 Not Available [facility] (Lab) [address] [facility], [place], [address], 04/21/2021 03:31:46 04/21/19 22 04/20/2021 CMP WITH BUN/C REAT RATIO albumin 4.8 g/dL 3.5-5. 0 Not Available [facility] (Lab) [address] [facility], [place], [address], 04/21/2021 03:31:46 04/21/19 22 04/20/2021 CMP WITH BUN/C REAT RATIO ALT 17 units /L 9-43 Not Available [facility] (Lab) [address] [facility], [place], [address], 04/21/2021 03:31:46 04/21/19 22 04/20/2021 CMP WITH BUN/C REAT RATIO alkaline phosphatase 78 units /L 34-104 Not Available [facility] (Lab) [address] [facility], [place], [address], 04/21/2021 03:31:46 04/21/19 22 04/20/2021 CMP WITH BUN/C REAT RATIO AST 15 units /L 13-39 Not Available [facility] (Lab) [address] [facility], [place], [address], 04/21/2021 03:31:46 04/21/19 22 04/20/2021 CMP WITH BUN/C REAT RATIO bilirubin, total 0.6 mg/dL 0.2-1. 2 Not Available [facility] (Lab) [address] [place], [address], 04/21/2021 03:31:46 04/21/19 22 04/20/2021 VITAM IN D, 25-OH (TOTA L D2/D3 ) vitamin D, 25-hydroxy, total 17.2 NG/mL 30-80 low NOTE: Defic iency : <20 ng/mL Insuf ficie ncy: 20-29 ng/mL Optim um Level : 30-80 ng/mL Possi ble Toxic ity: >80 ng/mL Most patie nts with toxic ity have level s >150 ng/mL . Not Available [facility] (Lab) [address] [place], [address], 04/21/2021 03:31:48 04/21/1904/20/2021 TSH, REFLE X FREE T4 TSH 4.97 uIU/m L 0.30-5 .33 Not Available [facility] (Lab) [address] [place], [address], 04/21/2021 03:31:48 Result Notes None recorded. Problems Name Problem SNOMED Code Status Onset Date Resolution Date Notes Provider Name and Address Organization Details Recorded Time Screenin g for malignan t neoplasm of rectum Completed 201004/08/2021 Screenin g for malignan t neoplasm s of the rectum;R ecorded Elsewher e: No Locat ion: [facility] S ource: EHR Fisheries Enforcement Officer carmen: N Gabrielle ce ID: 0001 Matt lable Time: 10:00:00 AM Jillian Gill [facility] 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 2 09:40:12 Micturit ion finding Completed 201704/08/2021 Unspecif ied urinary incontin ence;Rec orded Elsewher e: No Locat ion: [facility] S ource: EHR Fisheries Enforcement Officer carmen: N Jennyferti ce ID: 0001 Matt lable Time: 02:00:00 PM Jillianmiracle Garland [facility] 2 09:40:35 Speciali zed medical examinat ion Completed 201404/08/2021 Gynecolo gical Examinat ion;Per rded Elsewher e: No Locat ion: [facility] S ource: EHR Fisheries Enforcement Officer carmen: N Jennyferti ce ID: 0001 Matt lable Time: 03:00:00 PM Jillian [facility] 2 09:40:10 Menstrua tion finding Completed 201104/08/2021 Excessiv e or frequent menstrua tion;Rec orded Elsewher e: No Locat ion: [facility] S ource: EHR Fisheries Enforcement Officer carmen: N Jennyferti ce ID: 0001 Matt lable Time: 01:30:00 PM Jillian [facility] 2 09:40:25 Adult health examinat ion Completed 201404/08/2021 ROUTINE MEDICAL EXAM;Rec orded Elsewher e: No Locat ion: [facility] S ource: EHR Fisheries Enforcement Officer carmen: N Jennyferti ce ID: 0001 Matt lable Time: 03:00:00 PM Jillianmiracle [facility] 2 09:40:37 Finding of menstrua l bleeding Completed 201604/08/2021 Excessiv e and frequent menstrua tion with regular cycle;Re corded Elsewher e: No Locat ion: [facility] S ource: EHR Fisheries Enforcement Officer carmen: N Jennyferti ce ID: 0001 Matt lable Time: 03:30:00 PM Jillian [facility] 2 09:40:29 Abnormal weight gain [id number] Active 2016 Abnormal weight gain;Rec orded Elsewher e: No Locat ion: [facility] S ource: EHR Fisheries Enforcement Officer carmen: N Jennyferti ce ID: 0001 Matt lable Time: 03:30:00 PM Not Available [facility] 0 21:23:42 Vaginiti s and vulvovag initis Completed 201204/08/2021 Vaginiti s and vulvovag initis;R ecorded Elsewher e: No Locat ion: [facility] S ource: EHR Fisheries Enforcement Officer carmen: N Practi ce ID: 0001 Matt lable Time: 11:00:00 AM Jillian [facility] [address] 09:40:[address] Concept Completed 201804/08/2021 Encntr for general adult medical exam w/o abnormal findings ;Recorde d Elsewher e: No Locat ion: [facility] S ource: EHR Fisheries Enforcement Officer carmen: N Jennyferti ce ID: 0001 Matt lable Time: 01:30:00 PM Jillian [facility] 2 09:40:15 Screenin g for malignan t neoplasm of cervix Completed 201004/08/2021 Screenin g for malignan t neoplasm s of the cervix;R ecorded Elsewher e: No [facility] S ource: EHR Fisheries Enforcement Officer carmen: N Practi ce ID: 0001 Matt lable Time: 10:00:00 AM Jillian jackson [facility] 2 09:40:22 Menopaus e present [id number] Active 2016 vasomoto r sx;Recor ded Elsewher e: No Locat ion: [facility] S ource: EHR Fisheries Enforcement Officer carmen: N Practi ce ID: 0001 Matt lable Time: 03:30:00 PM Not Available [facility] 0 21:23:43 Dysfunct ional uterine bleeding Completed 201004/08/2021 MARILYN;Jennyfer brendan ID: 0001 Jillian [facility], [facility] 09:40:32 Problem Notes None recorded. Procedures Surgical History Date Name Laterality Status Provider Name and Address Organization Details Recorded Time 02/19/2020 Date of Last Pap Smear completed Jillian Garland [facility] 04/08/2021 09:38:04 Imaging Results None recorded. Procedure Notes None recorded. Medical Equipment None Reported. Allergies No known drug allergies Medications Name Sig Start Date Stop Date Status Note LastModified by Organization Details LastModified Time doxycycli ne hyclate 100 mg capsule TAKE 1 CAPSULE BY MOUTH TWICE A DAY FOR 10 DAYS active Not Available Not Available No t Available hydrocodo ne 5 mg-acetam inophen 325 mg tablet active Not Available Not Available Not Available Paxil 20 mg tablet TAKE 1 TABLET BY MOUTH EVERY DAY 04/08 completed Prescrib ed Elsewher e: No Locat ion: [facility] odify By: caesar frank DateTime : 10/10/19 10:42:06 AM Not Available Not Available Not Available Zithromax Z-Matthias 250 mg tablet take 2 tablet (500MG) by oral route every day for 1 day then 1 tablet (250 mg) by oral route once daily for 4 days 01/10 completed Prescrib ed Elsewher e: No Locat ion: [facility] odify By: jodidical Encount er DateTime : 01/07/20 13 09:23:16 AM Not Available Not Available Not Available phentermi ne 15 mg capsule Take 1 capsule every day by oral route. active Not Available Not Available No t Available Diflucan 150 mg tablet take 1 tablet (150MG) by oral route once 02/25 completed Prescrib ed Elsewher e: No Locat ion: [facility] odify By: tiera frank DateTime : 01/10/20 13 09:02:06 AM Not Available Not Available Not Available topiramat e 25 mg tablet TAKE ONE TABLET BY MOUTH DAILY active Not Available Not Available No t Available metronida zole 500 mg tablet active Not Available Not Available No t Available ciproflox acin 500 mg tablet active Not Available Not Available No t Available phentermi ne 30 mg capsule Take 1 capsule every day by oral route. active Not Available Not Available No t Available Macrobid 100 mg capsule take 1 capsule (100MG) by oral route every 12 hours for 4 days to be taken at time of schedule d procedur e 02/02 completed Prescrib ed Elsewher e: No Locat ion: [facility] odify By: mery Encount er DateTime : 01/31/20 11 10:00:00 AM Not Available Not Available Not Available Metrogel Vaginal 0.75 % (37.5 mg/5 gram) insert 1 applicat orful by vaginal route for 5 nights at bedtime 04/08 completed Prescrib ed Elsewher e: No Locat ion: [facility] odify By: billy scherer DateTime : 07/16/19 19 04:25:02 PM Not Available Not Available Not Available Synthroid 25 mcg tablet TAKE 1 TABLET BY ORAL ROUTE EVERY DAY 07/10 completed Prescrib ed Elsewher e: No [facility] odify By: josé manuel scherer DateTime : 03/19/19 18 01:10:16 PM Not Available Not Available Not Available Micronor (28) 0.35 mg tablet take 1 tablet by oral route every day 03/02 completed Prescrib ed Elsewher e: No [facility] By: tiera frank DateTime : 02/25/19 14 09:30:00 AM Not Available Not Available Not Available lisinopri l 10 mg tablet take 1 tablet by oral route every day active Not Available Not Available No t Available promethaz ine 25 mg tablet active Not Available Not Available Not Available Wellbutri n 75 mg tablet take 1 tablet by oral route 3 times every day 01/30 completed Prescrib ed Elsewher e: Yes Loca tion: [facility] odify By: billy scherer DateTime : 01/28/20 11 04:40:22 PM Not Available Not Available Not Available Synthroid 50 mcg tablet take 1 tablet by oral route every day active Not Available Not Available No t Available ergocalci ferol (vitamin D2) 1,250 mcg (50,000 unit) capsule take 1 capsule by oral route every week active Not Available Not Available No t Available Paxil 10 mg tablet take 1 tablet by oral route every day 07/10 completed Prescrib ed Elsewher e: No Locat ion: [facility] odify By: josé manuel barneyunter DateTime : 03/04/19 18 02:00:00 PM Not Available Not Available Not Available topiramat e 50 mg tablet Take 1 tablet twice a day by oral route. active Not Available Not Available No t Available lisinopri l active Not Available Not Available Not Available Lysteda 650 mg tablet take 2 tablet by oral route 3 times every day during menses 03/04 completed Prescrib ed Elsewher e: No Locat ion: [facility] odify By: ginger scherer DateTime : 03/02/19 15 03:00:00 PM Not Available Not Available Not Available Lo Loestrin Fe 1 mg-10 mcg (24)/10 mcg (2) tablet TAKE 1 TABLET BY ORAL ROUTE EVERY DAY 11/15 completed Prescrib ed Elsewher e: No Locat ion: [facility] odify By: josé manuel barneyunter DateTime : 03/28/19 16 08:20:47 AM Not Available Not Available Not Available Vitals Date Recorded Body height Body mass index (BMI) Body weight Systolic blood pressure Diastolic blood pressure Provider Name and Address Organization Details Last Updated DateTime 05/20/2021 157.48 cm 33.8 kg/m2 50000.59 g 139 mm[Hg] 80 mm[Hg] Jillian Garland [facility] 2 09:43:49 Date Recorded Body height Body mass index (BMI) Body weight Systolic blood pressure Diastolic blood pressure Provider Name and Address Organization Details Last Updated DateTime 06/06/2021 157.48 cm 32.9 kg/m2 74555.63 g 140 mm[Hg] 84 mm[Hg] Jillian [facility] 2 17:59:51 Date Recorded Body height Body mass index (BMI) Body weight Systolic blood pressure Diastolic blood pressure Provider Name and Address Organization Details Last Updated DateTime 07/01/2021 157.48 cm 32 kg/m2 61235.66 g 139 mm[Hg] 98 mm[Hg] Jillian [facility] 2 11:23:16 Date Recorded Body height Body mass index (BMI) Body weight Systolic blood pressure Diastolic blood pressure Provider Name and Address Organization Details Last Updated DateTime 07/29/2021 157.48 cm 31.1 kg/m2 64837.7 g 148 mm[Hg] 94 mm[Hg] Jillian [facility] 2 11:16:08 Date Recorded Body height Body mass index (BMI) Body weight Systolic blood pressure Diastolic blood pressure Provider Name and Address Organization Details Last Updated DateTime 09/09/2021 157.48 cm 30.4 kg/m2 11813.33 g 145 mm[Hg] 93 mm[Hg] Matilde Mendez [facility] 2 11:20:01 Social History None recorded. Functional Status None recorded. Mental Status None recorded. Family History Relationship Description Onset Age of this Age Resolved Age Notes LastModified by Organization Details LastModified Time Mother Malignant tumor of breast [email or web address] Not available 2021 10:06:28 Mother Diabetes mellitus [email or web address] Not available 2021 10:06:51 Mother Hypertensive disorder [email or web address] Not available 2021 10:07:11 Father Heart disease [email or web address] Not available 2021 10:06:39 Brother Diabetes mellitus [email or web address] Not available 2021 10:06:51 Brother Hypertensive disorder [email or web address] Not available 2021 10:07:11 Sister Hypertensive disorder [email or web address] Not available 2021 10:07:11 Maternal Aunt Diabetes mellitus [email or web address] Not available 2021 10:07:25 Medical History Condition Response Thyroid Problems Y Hypertension Y Gynecological History Statement/Question Response Date of Last Pap Smear 02/19/2020 Current Control Method None Date of LMP 01/02/2021 Obstetrics History GPAL:G 3 P 3 0 0 3 Type Value Full Term 3 Living 3 Total 3 Past Encounters Encounter ID Performer Location Encounter Start Date Encounter Closed Date Diagnosis/Indication Diagnosis SNOMED-CT Code Diagnosis ICD10 Code Diagnosis Note [id number] French Mendez MD [place] [address],[facility] [place] [address] 04/08/2021 09:05:46 04/10/2021 10:28:53 Obesity 764112244 E66.9 this patient is a 50-year-ol d female presents for treatment of obesity. We spent over an hour together. We talked at length about the issues surroundin g her excess body weight. Form body compositio n testing and discuss those results. Talked about her activity and her sleep. We talked about her mood. We talked about numerous complex issues. We discussed treatment options. We also talked about complete evaluation . The patient will have a dietitian consult. She will thus sleep study and EKG. And laboratory evaluation will be performed. She will return in 2 weeks. [id number] French Mendez MD [place] [address],[facility] [place] [address] 04/22/2021 11:49:50 04/25/2021 15:19:33 Vitamin D deficiency 83864279 E55.9 Obesity 632356479 E66.9 this patient is a 50-year-ol d female who presents for follow-up on weight management . We came together today to discuss a treatment plan. We spent more than 25 minutes face-to-fa ce discussing treatment options. We talked about her evaluation thus far. There is still more to the evaluation . Which includes a visit with the booth manager and starting program with her. We reviewed her results from her laboratory evaluation . We talked about her cholestero l. Talked about how we can reduce this with exercise and weight loss. Medical treatment is not necessary at this time. We also reviewed her low vitamin-D. We prescribe vitamin-D today. We also agreed to medical treatment. We talked about the G LP 1 agonist. We also talked about phentermin e topiramate combinatio n. We agreed to proceed with phentermin e topiramate combinatio n as low as dosing. We will likely go up from there. Bloods confirm that she tolerates this medication . She will return in 2 weeks she has sleep study guerline dobbins, dietitian consult, and she is exercising . She is doing cardiovasc ular work. [id number] French Mendez MD [place] [address],[place] [address] 05/20/2021 09:31:22 05/22/2021 15:41:11 Obesity 846758777 E66.9 this patient is a 50-year-ol d female who presents for follow-up on medical weight management . She started topiramate and phentermin e. She started the lowest doses. We have continued on this low dose and she lost 15 lb in about a 4 week span. She denies any unfavorabl e side effects. She has been active. She is doing some resistance training and cardiovasc ular exercise. She has seen the dietitian. We discuss changes in the medication . Agreed to maintain medication s current doses. She will follow-up in 2 weeks. We will consider medication adjustment again at that time. Reviewed her labs again today. We will consider body compositio n testing repeat cyst and laboratory value repeated sometime in the future. to consider metabolism testing. [id number] French Mendez MD [place] [address],[facility] [place] [address] 06/06/2021 17:19:32 06/07/2021 11:26:00 Obesity [id number] E66.9 this patient is a 50-year-ol d female presents for medication follow-up. We reviewed her results so far. She has lost over 20 lb in 2 months. We are very excited about her results. She is on the lowest dose of phentermin e. We agreed to continue with that current dosing. We spent over 20 minutes face-to-fa ce. We talked about the diet counseling she has received. We talked about her exercise routines. We talked about adding some resistance training. Reviewed basal metabolic rate and energy expenditur e and resistance training exercise. She return 1 month. We will maintain the same dose of phentermin e and topiramate . She has no untoward side effects. [id number] French Mendez MD [place] [address],[place] [address] 07/01/2021 11:13:36 07/01/2021 12:29:53 Obesity 799061018 E66.9 this patient is a 50-year-ol d female presents for medication follow-up. We reviewed her results so far. She has lost over 27 lb in 3 months. We are very excited about her results. She is on the lowest dose of phentermin e. We agreed to continue with that current dosing. We spent over 20 minutes face-to-fa ce. We talked about the diet counseling she has received. We talked about her exercise routines. We talked about adding some resistance training. She return 1 month. We will maintain the same dose of phentermin e and topiramate . She has no untoward side effects. [id number] MD Jenelle Martinez [address],[place] [address] 07/29/2021 10:51:08 07/31/2021 14:45:57 Obesity 962923081 E66.9 This patient is a 50-year-ol d female presents for weight management . She continues to lose weight about 5 lb a month. She started resistance training and is walking considerab ly. She has lost 32 lb in 4 months. She has been on 15 mg of phentermin e. We agreed to increase to 30 mg of phentermin e and 50 mg topiramate . She has not experience d any side effects to date. She will be mindful of side effects. She has follow-up with the dietitian. We spent over 20 minutes face-to-fa ce. More than 50% was counseling . We are going to repeat body compositio n testing at her next visit. [id number] MD Jenelle Martinez [address],[place] [address] 09/09/2021 10:26:40 09/11/2021 15:55:16 Obesity 049058966 E66.9 this patient is a 50-year-ol d female presents for follow-up on weight management . She continues to lose weight. It has slowed to some degree. She had some vacations and some parties over the last interval and she had difficulty maintainin g her routine. She has added resistance training. She has changed her diet a great deal. Her cravings of been managed well. She will follow-up 1 month. She Will continue phentermin e. We spent 20 minutes face-to-fa ce. More than 50% was counseling . Health Concerns Section Related Observation LastModified by Organization Detai ls LastModified Time None Recorded Concern Status LastModified by Organization Details LastModified Time None Recorded Advance Directives Directive None Recorded Payers Encounter Date Sequence Insurance Name Policy Number Policy Urena Covered Member ID Urena Member ID Guarantor Name 05/20/2021 1 [place] [id number] Esteban [id number] 67 Lynn Esteban 06/06/2021 1 [place] [id number] Lynn E Esteban [id number] 67 [place] 07/01/2021 1 [id number] Lynn E Esteban [id number] 67 Lynn Esteban 07/29/2021 1 [id number] Lynn E [place] [id number] 67 Lynn Esteban 09/09/2021 1 [id number] Lynn E Esteban [id number] 67 Lynn [place] Notes Date Note Type Note Provider Name and Address Organization Details Recorded Time 05/20/2021 text/html this patient is a 50-year-old female who presents for follow-up on medical weight management. She started topiramate and phentermine. She started the lowest doses. We have continued on this low dose and she lost 15 lb in about a 4 week span. She denies any unfavorable side effects. She has been active. She is doing some resistance training and cardiovascular exercise. She has seen the dietitian. We discuss changes in the medication. Agreed to maintain medications current doses. She will follow-up in 2 weeks. We will consider medication adjustment again at that time. Reviewed her labs again today. We will consider body composition testing repeat cyst and laboratory value repeated sometime in the future. to consider metabolism testing. French Mendez MD [address], [place], [address], [facility] 05/20/2021 13:09:03 06/06/2021 text/html this patient is a 50-year-old female presents for medication follow-up. We reviewed her results so far. She has lost over 20 lb in 2 months. We are very excited about her results. She is on the lowest dose of phentermine. We agreed to continue with that current dosing. We spent over 20 minutes [id number]. We talked about the diet counseling she has received. We talked about her exercise routines. We talked about adding some resistance training. Reviewed basal metabolic rate and energy expenditure and resistance training exercise. She return 1 month. We will maintain the same dose of phentermine and topiramate. She has no untoward side effects. French Mendez MD [address], [place], [address], [facility] 06/06/2021 22:29:04 07/01/2021 text/html this patient is a 50-year-old female presents for medication follow-up. We reviewed her results so far. She has lost over 27 lb in 3 months. We are very excited about her results. She is on the lowest dose of phentermine. We agreed to continue with that current dosing. We spent over 20 minutes [id number]. We talked about the diet counseling she has received. We talked about her exercise routines. We talked about adding some resistance training. She return 1 month. We will maintain the same dose of phentermine and topiramate. She has no untoward side effects. French Mendez MD [address], [place], [address], [facility] 07/01/2021 12:21:33 07/29/2021 text/html This patient is a 50-year-old female presents for weight management. She continues to lose weight about 5 lb a month. She started resistance training and is walking considerably. She has lost 32 lb in 4 months. She has been on 15 mg of phentermine. We agreed to increase to 30 mg of phentermine and 50 mg topiramate. She has not experienced any side effects to date. She will be mindful of side effects. She has follow-up with the dietitian. We spent over 20 minutes [id number]. More than 50% was counseling. We are going to repeat body composition testing at her next visit. French Mendez MD [address], [place], [address], [facility] 07/29/2021 12:00:20 09/09/2021 text/html this patient is a 50-year-old female presents for follow-up on weight management. She continues to lose weight. It has slowed to some degree. She had some vacations and some parties over the last interval and she had difficulty maintaining her routine. She has added resistance training. She has changed her diet a great deal. Her cravings of been managed well. She will follow-up 1 month. She Will continue phentermine. We spent 20 minutes [id number]. More than 50% was counseling. French Mendez MD [address], [place], [address], [facility] 09/09/2021 13:21:11 OBGyn Episode Ob Episode Information Episode Created Date Number of Fetuses Patient Bloodtype Patient rh Status Prepregnancy Weight lbs Domestic Partner Domestic Partner Phone Father Name Edging Machine Catcher Status 04/08/19 22 1 CLOSED Fetus Data First Name Last Name Admitted to NICU Weight (g) Sex Living Outcome Pediatric Complications Fetus ID Race Codes Race Delivery Type 3033.16 9704 F Full Term [id number] Vaginal Delivery Anthony Calculation Initial Anthony Date Initial Exam Date Initial Exam Provider Initial Ultrasound Date Last Menstrual Period Date Ultra Sound Weeks Gestation 0 Eighteen To Twenty Week Anthony Update Ultra Sound Date Fundal Height At Umbil Quickening Date Ultra Sound Latest Weeks Gestation Final Anthony Confirmed By Final Anthony Confirmed Date Final Anthony Date Ultra Sound Latest Days Gestation 0 0 Menstrual History Last Menstrual Date Menses Monthly On Bcp Conception Prior Menses Frequency Hcg Plus Date Menarche Onset Age Delivery Information Delivery Date Delivery Type Labor Anesthesia Weeks Gestation Incision Type Labor Labor Length Hrs Delivered By Post Complications Tubal Sterilization Discharge Date Comments 7 38 Mackenz i e Discharge Information Feeding Method Contraceptive Method Maternal HG B and HCT Levels Ob Episode Information Episode Created Date Number of Fetuses Patient Bloodtype Patient rh Status Prepregnancy Weight lbs Domestic Partner Domestic Partner Phone Father Name Edging Machine Catcher Status 04/08/19 22 1 CLOSED Fetus Data First Name Last Name Admitted to NICU Weight (g) Sex Living Outcome Pediatric Complications Fetus ID Race Codes Race Delivery Type 3486.76 1704 F Full Term 31177 Vaginal Delivery Anthony Calculation Initial Anthony Date Initial Exam Date Initial Exam Provider Initial Ultrasound Date Last Menstrual Period Date Ultra Sound Weeks Gestation 0 Eighteen To Twenty Week Anthony Update Ultra Sound Date Fundal Height At Umbil Quickening Date Ultra Sound Latest Weeks Gestation Final Anthony Confirmed By Final Anthony Confirmed Date Final Anthony Date Ultra Sound Latest Days Gestation 0 0 Menstrual History Last Menstrual Date Menses Monthly On Bcp Conception Prior Menses Frequency Hcg Plus Date Menarche Onset Age Delivery Information Delivery Date Delivery Type Labor Anesthesia Weeks Gestation Incision Type Labor Labor Length Hrs Delivered By Post Complications Tubal Sterilization Discharge Date Comments 2 40 Valentine Discharge Information Feeding Method Contraceptive Method Maternal HG B and HCT Levels Ob Episode Information Episode Created Date Number of Fetuses Patient Bloodtype Patient rh Status Prepregnancy Weight lbs Domestic Partner Domestic Partner Phone Father Name Edging Machine Catcher Status 04/08/19 22 1 CLOSED Fetus Data First Name Last Name Admitted to NICU Weight (g) Sex Living Outcome Pediatric Complications Fetus ID Race Codes Race Delivery Type 3543.46 0704 F Full Term 00020 Vaginal Delivery Anthony Calculation Initial Anthony Date Initial Exam Date Initial Exam Provider Initial Ultrasound Date Last Menstrual Period Date Ultra Sound Weeks Gestation 0 Eighteen To Twenty Week Anthony Update Ultra Sound Date Fundal Height At Umbil Quickening Date Ultra Sound Latest Weeks Gestation Final Anthony Confirmed By Final Anthony Confirmed Date Final Anthony Date Ultra Sound Latest Days Gestation 0 0 Menstrual History Last Menstrual Date Menses Monthly On Bcp Conception Prior Menses Frequency Hcg Plus Date Menarche Onset Age Delivery Information Delivery Date Delivery Type Labor Anesthesia Weeks Gestation Incision Type Labor Labor Length Hrs Delivered By Post Complications Tubal Sterilization Discharge Date Comments 0 39 Carrillo Discharge Information Feeding Method Contraceptive Method Maternal HG B and HCT Levels
--- OUTSIDE RECORDS SUMMARY | 2024-06-09 02:14 | XMS_ITS | Encounter Summary ---
Author Organization [facility] Address [facility] [place] [address] Care Team Providers Care Field Care Advocate Name Role Phone Aruna Ruvalcaba NP Primary Care Provider [phone] Encounter Details Date Type Department Care Team (Late st Contact Info) Description 08/30/2023 Host Committee Message Enc [facility] Family Medicine [facility] [address] [place] [address] [phone] Aruna Ruvalcaba, EXECUTIVE DIRECTOR [address] [place] [address] Injections for weight loss Social History Tobacco [...] Sexual Orientation Straight 01/01/2018 8: 41 AM [employer] documented as of this encounter Plan of Treatment Not on file documented as of this encounter Visit Diagnoses Not on filedocumented in this encounter Additional Health Concerns Assessment Noted Time PHQ-9 Depression Total Score: 0 07/14/19 23 8:12 AM CDT documented as of this encounter Care Teams Field Care Advocate Relationship Specialty Start Date End Date Aruna Ruvalcaba NP [address] [place] [address] PCP - General NURSE PRACTITIONER 08/27/23 documented as of this encounter
--- OUTSIDE RECORDS SUMMARY | 2024-06-09 02:14 | XMS_ITS | Encounter Summary ---
Author Organization [facility] Address [facility] [place] [address] Care Team Providers Care Classification Case Manager Name Role Phone Aruna Ruvalcaba NP Primary Care Provider [phone] Encounter Details Date Type Department Care Team (Late st Contact Info) Description 01/06/[address] [facility] Family & Internal Medicine [facility] [address] [place] [address] Annelise Torres FNP [address] [place], [place] [id number] Abx? 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 Review message and my response and then looks like she messaged you. CONSERVATION TEACHER documented in this encounter Plan of Treatment Not on file documented as of this encounter Visit Diagnoses Diagnosis Acute non-recurrent frontal sinusitis- Primary documented in this encounter Additional Health Concerns Assessment Noted Time PHQ-9 Depression Total Score: 0 07/14/19 23 8:12 AM CDT documented as of this encounter Care Teams Classification Case Manager Relationship Specialty Start Date End Date Aruna Ruvalcaba NP [address] [place] [address] PCP - General NURSE PRACTITIONER 08/27/23 documented as of this encounter
--- OUTSIDE RECORDS SUMMARY | 2024-06-09 02:14 | XMS_ITS | Clinical Summary ---
Author Organization [facility] Address [address] [place] [address] Phone Care Team Providers Care Special Officer Name Role Phone Omari Magana MD Primary Care Provider [phone] Social History Tobacco Use Types Packs/Day Years [...] patient's age to complete this topic Insurance [facility] Care Teams Special Officer Relationship Specialty Start Date End Date Omari Magana MD [address] [place] [address] PCP - General Family Medicine 06/03/15
[2024-06-09 12:27] VITALS: BP 145/94; PULSE 64; RESP 19; TEMP 35.7; O2SAT 100
[2024-06-09] MEDS: LACTATED RINGERS 1,000 ML 150 ML IV CONT (12:44)
--- NOTE | 2024-06-09 12:47 | P.PNAN_ITS ---
Anes - Initial Pre Proc Eval Procedure: Operation Date: 06/09/24 13:30 Proposed Procedures p Colonoscopy - Po Puga MD Date/Time: 06/09/24 12:47 Surgeon: Po Puga MD Pre Op Diagnosis: other fecal abnormalities Patient Data Age: 53 Gender: F Height: 1.6 m Weight: 71.8 kg Last Vital Signs Temp 35.7 C L 06/09/24 12:27 Pulse 64 06/09/24 12:27 Resp 19 06/09/24 12:27 BP 145/94 H 06/09/24 12:27 Pulse Ox 100 06/09/24 12:27 O2 Del Method Room Air 06/09/24 12:27 Allergies Allergy/AdvReac Type Severity Reaction Status Date / Time No Known Allergies Allergy Verified 06/09/24 12:26 Home Medications ?Medication ?Instructions ?Recorded ?Confirmed ?Type levothyroxine 50 mcg tablet 50 mcg PO DAILY 05/21/24 06/09/24 History (Synthroid) lisinopril 10 mg tablet 10 mg PO DAILY 05/21/24 06/09/24 History tirzepatide 12.5 mg/0.5 mL 12.5 mg subcut WEEKLY WEIGHT LOSS 05/29/24 05/29/24 History subcutaneous pen injector (Mounjaro) Patient hx anesthesia problems: none Family hx anesthesia problems: none Results Review: All pre-operative results and documents have been reviewed as part of the pre- operative evaluation. [facility] Past Medical History Medical History Hypothyroid Obesity Hypertension Post-menopausal Surgical History Surgical History No significant past surgical history Family History Family History Father , Related to emphysema Smoker Cerebrovascular accident Mother , At age 80 Lymphoma Diabetes mellitus Hypertension Cancer Social History Social History (Updated 06/09/24 @ 12:49 by Kevin Khalil MD) Smoking status: Never smoker Second hand tobacco smoke exposure: No Alcohol intake: current Alcohol use details: 1-4 a week Substance use: never Do You Feel Safe in your Home?: Yes Lack of Transportation: No Lack of Food: Never True Current Housing: I Have Housing Concerned About Future Housing: No Difficulty Paying Gas/Electric Bills: No Difficulty Paying for Meds: No Currently Unemployed: No Education: Bachelor's Degree Difficulty w/ Childcare or Family Care: No Living arrangements: with family Occupation/Education: occupation Gender identity (if verbalized by the patient): Female Sexual Orientation (if Verbalized by the Patient): Straight or Heterosexual Agree to blood products: Yes Anes - Eval Final PreProcedure Day of Procedure 06/09/24 12:47 Patient weight: overweight Heart: regular rate and rhythm Lungs: clear to auscultation Airway: Mallampati scale class II Neurological: alert and oriented Last oral intake: >/= 8 hours ASA classification: II Emergent: no Anesthetic plan: proceed Anesthesia type and monitoring: general GIVS and standard monitoring Results Review: All pre-operative results and documents have been reviewed as part of the pre- operative evaluation. Informed Consent: The patient's anesthetic plan and its attendant risks and benefits were discussed with the patient/family/POA. Questions were solicited and answers provided to the satisfaction of the patient/family/POA.
--- NOTE | 2024-06-09 14:12 | PM.IMHP ---
H&P: HPI History of Present Illness Date/Time: 06/09/24 14:12 Chief Complaint: Screening colonoscopy Review of Systems Review of Systems: All systems reviewed & are unremarkable except as noted in HPI and below PMFSH Past Medical History Medical History Hypothyroid Obesity Hypertension Post-menopausal Surgical History Surgical History No significant past surgical history Family History Family History Father , Related to emphysema Smoker Cerebrovascular accident Mother , At age 80 Lymphoma Diabetes mellitus Hypertension Cancer Social History Social History (Updated 06/09/24 @ 12:49 by Kevin Khalil MD) Smoking status: Never smoker Second hand tobacco smoke exposure: No Alcohol intake: current Alcohol use details: 1-4 a week Substance use: never Do You Feel Safe in your Home?: Yes Lack of Transportation: No Lack of Food: Never True Current Housing: I Have Housing Concerned About Future Housing: No Difficulty Paying Gas/Electric Bills: No Difficulty Paying for Meds: No Currently Unemployed: No Education: Bachelor's Degree Difficulty w/ Childcare or Family Care: No Living arrangements: with family Occupation/Education: occupation Gender identity (if verbalized by the patient): Female Sexual Orientation (if Verbalized by the Patient): Straight or Heterosexual Agree to blood products: Yes Meds Home Medications and Allergies Home Medications ?Medication ?Instructions ?Recorded ?Confirmed ?Type levothyroxine 50 mcg tablet 50 mcg PO DAILY 05/21/24 06/09/24 History (Synthroid) lisinopril 10 mg tablet 10 mg PO DAILY 05/21/24 06/09/24 History tirzepatide 12.5 mg/0.5 mL 12.5 mg subcut WEEKLY WEIGHT LOSS 05/29/24 05/29/24 History subcutaneous pen injector (Mounjaro) Allergies Allergy/AdvReac Type Severity Reaction Status Date / Time No Known Allergies Allergy Verified 06/09/24 12:26 Vital Signs Vital Signs - 24 hr 06/09/24 12:27 Temperature 96.2 F L Pulse Rate 64 Respiratory Rate 19 Blood Pressure 145/94 H Pulse Oximetry 100 Oxygen Delivery Room Air Exam Const: General: cooperative and healthy appearing Resp: Effort & Inspection: normal respiratory effort and able to speak in complete sentences Auscultation: clear to auscultation bilaterally Cardio: Rate: regular rate Rhythm: regular rhythm GI: Inspection: normal to inspection GI Palp: No No hepatosplenomegaly present Auscultation: normal bowel sounds Rectal Exam: deferred Skin: General skin exam: normal color Psych: Appearance: grossly normal Mental Status: mental status grossly normal Assessment and Plan Assessment and plan (1) Encounter for screening colonoscopy: Code(s): Z12.11 - Encounter for screening for malignant neoplasm of colon Status: Acute Assessment and Plan: The patient is deemed a good candidate for the procedure. Consent signed. Will proceed.
[2024-06-09 14:47] VITALS: BP 123/78; PULSE 71; RESP 17; O2SAT 98
[2024-06-09 14:57] VITALS: BP 135/78; PULSE 66; RESP 17; O2SAT 98
[2024-06-09 15:07] VITALS: BP 127/88; PULSE 64; RESP 17; O2SAT 98
== END 2024-06-09 15:19 | disposition home or self-care (01) ==
PROVIDERS: PCP Nurse Practitioner Adult Health; Referring Provider Nurse Practitioner; Visit Provider Internal Medicine Gastroenterology
PROC: 0DJD8ZZ Inspection of Lower Intestinal Tract, Via Natural or Artificial Opening Endoscopic (ICD-10-PCS; CPT 45378; principal; 2024-06-09 13:30)
DX: Z12.11 Encounter for screening for malignant neoplasm of colon (principal); D12.5 Benign neoplasm of sigmoid colon; K63.5 Polyp of colon; K57.30 Diverticulosis of large intestine without perforation or abscess without bleeding; E03.9 Hypothyroidism, unspecified; I10 Essential (primary) hypertension; Z79.85 Long-term (current) use of injectable non-insulin antidiabetic drugs; Z80.7 Family history of other malignant neoplasms of lymphoid, hematopoietic and related tissues; Z82.49 Family history of ischemic heart disease and other diseases of the circulatory system
CPT/HCPCS: 45385; 88305; J2003; J2704; J7120

== ENCOUNTER 2024-10-14 15:04 | Outpatient (CLI) | payer BC, SELFPAY ==
--- NOTE | ~2024-10-14 | MM_ITS ---
EXAMINATION: MM screening carol BI w bri HISTORY: Screening TECHNIQUE: Craniocaudal and mediolateral oblique 3-D tomosynthesis images were obtained and synthetic 2-D images were generated. CAD analysis was submitted and interpreted. COMPARISON: Comparison to multiple prior studies sequentially, with oldest reviewed study dated , 03/04/2017 BREAST PARENCHYMAL COMPOSITION: There are scattered areas of fibroglandular density. FINDINGS: There is no evidence of suspicious mass, calcification, or architectural distortion to suggest malignancy in either breast. IMPRESSION: 1. No mammographic evidence of malignancy. 2. Recommend routine screening mammography in one year. BI-RADS Category 1: Negative Reviewed, dictated and finalized at location B.
--- OUTSIDE RECORDS SUMMARY | 2024-10-14 15:08 | XMS_ITS | Clinical Summary ---
Author Organization [facility] Address [address] [place] [address] Phone Care Team Providers Care Vice President Of Contracts Name Role Phone Omari Magana MD Primary Care Provider [phone] Social History Tobacco Use Types Packs/Day Years [...] Cervical Cancer Screening (CCS) 10/02/1999 HPV/Cotest 10/02/1999 Cologuard 2014 Colonoscopy 2014 Colorectal Cancer Screening 2014 Immunochemical Fecal Occult Blood 2014 Pneumococcal Immunization (5 0+ years) (1 of 1 - PCV) 10/02/2019 Zoster Immunization (1 of 2) 10/02/2019 SARS-COV-2 Immunization ( - 2023-25 season) 2023 Influenza Immunization (#1) 2024 Respiratory Syncytial Virus (RSV) Immunization (Adult) (1 - 1-dose 75+ series) 2044 Human Papillomavirus (HPV) Immunization Aged Out No longer eligible b ased on patient's age to complete this topic Meningococcal Immunization (ACWY) Aged Out No longer eligible based on patient's age to complete this topic Rotavirus Immunization Aged Out No lo nger eligible based on patient's age to complete this topic Insurance [facility] Care Teams Vice President Of Contracts Relationship Specialty Start Date End Date Omari Magana MD [address] [place] [address] PCP - General Family Medicine 06/03/15
== END 2024-10-14 15:05 | disposition home or self-care (01) ==
LOC: ANHFOHIMG 15:05
PROVIDERS: PCP Nurse Practitioner Adult Health; Visit Provider Nurse Practitioner Adult Health
DX: Z12.31 Encounter for screening mammogram for malignant neoplasm of breast (principal)
CPT/HCPCS: 77063; 77067

== ENCOUNTER 2024-11-25 09:25 | Outpatient (CLI) | payer BC, SELFPAY ==
[2024-11-25 19:17] LABS: Alanine Aminotransferase 15 U/L (6-35); Albumin Level 4.6 g/dL (3.5-5.1); Alkaline Phosphatase 67 U/L (38-126); Anion Gap 8 mmol/L (4-12); Aspartate Amino Transferase 64 U/L (14-36); Bilirubin,Total 0.7 mg/dL (0.2-1.3); Blood Urea Nitrogen 18 mg/dL (7-17); Calcium 9.5 mg/dL (8.4-10.2); Carbon Dioxide 29 mmol/L (22-30); Chloride 104 mmol/L (98-107); Estimated Glomerular Filt Rate > 60; Glucose 73 mg/dL (65-110); Potassium 4.0 mmol/L (3.4-5.0); Sodium 141 mmol/L (137-145); Total Protein 8.1 g/dL (6.3-8.2)
[2024-11-25 19:53] LABS: Thyroid Stimulating Hormone 1.520 uIU/mL (0.465-4.680)
== END 2024-11-25 09:26 | disposition home or self-care (01) ==
PROVIDERS: PCP Nurse Practitioner Adult Health; Visit Provider Nurse Practitioner Adult Health
DX: E03.9 Hypothyroidism, unspecified (principal); I10 Essential (primary) hypertension
CPT/HCPCS: 36415; 80053; 84443